=== PATIENT | female | born 1950 ===

== ENCOUNTER 2024-07-17 18:14 | Outpatient (REF) | payer MEDICARE, SELFPAY ==
[2024-07-17 21:47] LABS: Calculated LDL 133 mg/dL (<100); Cholesterol 228 mg/dL (<200); HDL Cholesterol 63 mg/dL (>or=50); TSH (W/Ref FT4) 1.06 uIU/mL (0.36-3.74); Triglyceride 161 mg/dL (<150)
== END 2024-07-17 18:15 | disposition home or self-care (01) ==
LOC: NCHCN 18:14
PROVIDERS: Visit Provider Family Medicine
DX: E78.5 Hyperlipidemia, unspecified (principal); E04.9 Nontoxic goiter, unspecified
CPT/HCPCS: 80061; 84443